=== PATIENT | female | born 1965 | race Caucasian/White ===

== ENCOUNTER 2022-04-09 13:27 | Outpatient (CLI) | payer BC, SELFPAY ==
[2022-04-09 15:09] LABS: TSH With Reflex to FT4* 0.733 uIU/mL (0.270-4.200)
[2022-04-12 14:35] LABS: Testosterone, Low Level 60 ng/dL (9-55)
== END 2022-04-09 13:28 | disposition home or self-care (01) ==
LOC: NFLDREF 13:28
PROVIDERS: PCP Family Medicine; Visit Provider Obstetrics & Gynecology
DX: Z01.419 Encounter for gynecological examination (general) (routine) without abnormal findings (principal); E03.9 Hypothyroidism, unspecified; Z79.899 Other long term (current) drug therapy; Z13.1 Encounter for screening for diabetes mellitus
CPT/HCPCS: 84403; 84443

== ENCOUNTER 2022-06-21 08:33 | Outpatient (CLI) | payer BC, SELFPAY | END 2022-06-21 08:34 | disposition home or self-care (01) | LOC: OP CLINIC 08:34 | PROVIDERS: PCP Family Medicine; Visit Provider Surgery | DX: K62.5 Hemorrhage of anus and rectum (principal); K63.5 Polyp of colon | CPT/HCPCS: 45385; 88305; J1200; J2250; J3010 ==

== ENCOUNTER 2022-10-25 13:01 | Outpatient (CLI) | payer BC, SELFPAY ==
--- NOTE | 2022-10-25 13:20 | CRLHL7_ITS ---
For Patients: As a result of the Century Cures Act, medical imaging exams and procedure reports are released immediately into your electronic medical record. You may view this report before your referring provider. If you have questions, please contact your health care provider. BILATERAL SCREENING MAMMOGRAM WITH COMPUTER-AIDED DETECTION AND TOMOSYNTHESIS TECHNIQUE: CC and MLO views were obtained. These mammographic images have been obtained using full-field digital technique. These mammographic images were interpreted with the benefit of computer-aided detection. Breast Tomosynthesis was used in this interpretation. COMPARISON FILM: 06/26/21, 03/15/20, 01/20/19. FINDINGS: There are scattered areas of fibroglandular density IMPRESSION: There is no radiographic evidence for malignancy. ASSESSMENT: BI-RADS Category 1: Negative RECOMMENDATION: Routine screening mammogram in 1 year. A lay language report of this examination will be provided to the patient. Jasvir Prabhakar M.D. Diagnostic Radiologist [email or web address] TOÑA/Dictated by: Jasvir Prabhakar MD @ 11/01/2022 11:05:00 AM (Electronically Signed)
== END 2022-10-25 13:02 | disposition home or self-care (01) ==
LOC: MAMMO 13:02
PROVIDERS: PCP Family Medicine; Visit Provider Family Medicine
DX: Z12.31 Encounter for screening mammogram for malignant neoplasm of breast (principal)
CPT/HCPCS: 77063; 77067

== ENCOUNTER 2023-05-07 08:32 | Outpatient (CLI) | payer BC, SELFPAY | END 2023-05-07 08:33 | disposition home or self-care (01) | PROVIDERS: PCP Family Medicine; Visit Provider Family Medicine | DX: Z01.818 Encounter for other preprocedural examination (principal); Z00.00 Encounter for general adult medical examination without abnormal findings; E03.9 Hypothyroidism, unspecified; E78.00 Pure hypercholesterolemia, unspecified | CPT/HCPCS: 80053; 80061; 84439; 84443 ==

== ENCOUNTER 2023-06-11 12:45 | Outpatient (CLI) | payer BC, SELFPAY ==
--- NOTE | 2023-06-11 13:00 | XR_ITS ---
Patient: MARLEE MICHEL Facility:?[facility] Patient ID:?[id number] Site Patient ID:?[id number]. Site :?[id number] Study:?DEXA-Bone Density DEXA - SPINE/HIPS-06/11/2023 1:43:54 PM Ordering Physician:KANG Final Report: DXA BONE MINERAL DENSITY STUDY Reason for exam: Screening. Current height (in): 67. Weight (lb): 165. Menopause age: 35. Ethnicity: White. 1. Have you had a previous hip or vertebral fracture? No. 2. Have you had any fractures during your adult life which did not result from significant trauma (e.g., auto accident)? No. 3. Did either of your parents have a hip fracture? No. 4. Do you smoke? No. 5. Have you ever taken Glucocorticoids? No. 6. Do you have rheumatoid arthritis? No. 7. Do you have secondary osteoporosis? No. 8. Do you drink 3 or more alcoholic drinks per day? No. 9. Are you being treated for osteoporosis? No. 10. Have you ever taken any of the following medications: Actonel, Evista, Fosamax, Miacalcin, Reclast, Boniva, Forteo, HRT (i.e. estrogen/hormone therapy), Protelos, Prolia, Vitamin D, Calcium, other ? please specify. ANSWER: Yes, Vitamin D, HRT (i.e. estrogen/hormone therapy) calcium and Levothyroxin. 11. Do you have any of the following medical conditions: Anorexia or bulimia, asthma or emphysema, end stage renal disease, hyperparathyroidism, any seizure disorders, cancer, inflammatory bowel diseases, hysterectomy, other ? please specify. ANSWER: Yes, Cancer and hysterectomy. 12. What was your maximum height (inches)? 67. 13. Do you perform weight bearing exercise regularly? No. 14. Do you regularly consume dairy products? Yes. 15. Do you drink caffeinated beverages? Yes. 16. At what age did your period start? 11. 17. Are you premenopausal? No. 18. How many full term pregnancies have you had? 2. 19. Have you ever missed your period for more than 6 months in a row (not including or menopause)? No. TECHNIQUE: Bone mineral density study was performed using the [employer]. FINDINGS: The results of the study expressed as bone mineral density (BMD) are as follows: Lumbar spine L1 to L3: BMD: 1.226 g/cm2. T-score: 1.9. Z-score: 3.2. Neck Left: BMD: 0.979 g/cm2. T-score: 1.2. Z-score: 2.4. Right: BMD: 0.899 g/cm2. T-score: 0.5. Z-score: 1.7. Total Left: BMD: 1.047 g/cm2. T-score: 0.9. Z-score: 1.8. Right: BMD: 1.051 g/cm2. T-score: 0.9. Z-score: 1.8. IMPRESSION: Normal bone density. *Comparison exams done prior to 08/2019 were performed on different unit, [employer]. Marcos Collins M.D. [email or web address] JPK:[email or web address] D& Transcribed: 7:30 pm SP/Dictated by: Marcos Collins MD @ 06/11/2023 3:52:00 PM Signed by:?Marcos Collins MD @06/12/2023 8:30:44 AM (Electronic Signature)
== END 2023-06-11 12:46 | disposition home or self-care (01) ==
LOC: RAD 12:45
PROVIDERS: PCP Family Medicine; Visit Provider Family Medicine
DX: Z13.820 Encounter for screening for osteoporosis (principal); Z85.43 Personal history of malignant neoplasm of ovary
CPT/HCPCS: 77080

== ENCOUNTER 2023-06-18 09:34 | Outpatient (CLI) | payer BC, SELFPAY | END 2023-06-18 09:35 | disposition home or self-care (01) | LOC: NFLDREF 06-27 12:30 | PROVIDERS: PCP Family Medicine; Referring Provider Family Medicine; Visit Provider Family Medicine | DX: E03.9 Hypothyroidism, unspecified (principal) | CPT/HCPCS: 84443 ==

== ENCOUNTER 2024-07-07 12:40 | Outpatient (CLI) | payer BC, SELFPAY | END 2024-07-07 12:41 | disposition home or self-care (01) | LOC: LKVREF 12:42 | PROVIDERS: PCP Family Medicine; Visit Provider Family Medicine | DX: E03.9 Hypothyroidism, unspecified (principal) | CPT/HCPCS: 84443 ==

== ENCOUNTER 2024-10-12 10:47 | Outpatient (CLI) | payer BC, SELFPAY ==
--- NOTE | 2024-10-27 10:01 | W.PM.SLEEP ---
Sleep Study Details Details Interpreting Provider: Zhang Date of Sleep Study: 10/12/24 Sleep Study Details: STUDY TYPE:? Home unattended ? BMI:? 25.84 ORDERING PROVIDER:? Sivakumar INDICATION:? Concerned about sleep apnea ? SLEEP SUMMARY:? 300 minutes monitored RESPIRATORY SUMMARY:? AHI 9.2 per rule 1A, 6.2 per CMS guideline Low oxygen 77 2.4% of study oxygen less than 90% Snoring 80% PERIODIC LIMB MOVEMENTS OF SLEEP:? Not recorded CARDIAC:? Range 46-76, mean 54.3 beats per minute IMPRESSION:? Mild obstructive sleep apnea RECOMMENDATION: Treatment options include CPAP, dental appliance and/or airway expansion surgery.
== END 2024-10-12 10:48 | disposition home or self-care (01) ==
PROVIDERS: PCP Family Medicine; Visit Provider Family Medicine
DX: G47.33 Obstructive sleep apnea (adult) (pediatric) (principal)
CPT/HCPCS: 95806

== ENCOUNTER 2024-10-21 11:10 | Outpatient (CLI) | payer BC, SELFPAY ==
--- NOTE | 2024-10-21 11:30 | CRLHL7_ITS ---
For Patients: As a result of the Century Cures Act, medical imaging exams and procedure reports are released immediately into your electronic medical record. You may view this report before your referring provider. If you have questions, please contact your health care provider. BILATERAL DIGITAL SCREENING MAMMOGRAM WITH COMPUTER-AIDED DETECTION AND TOMOSYNTHESIS CLINICAL HISTORY: : Routine screening exam. COMPARISON: Mammograms 06/26/2021, 03/15/2020 TECHNIQUE: Digital mammogram in CC and MLO projections including computer-aided detection (CAD). Tomosynthesis was utilized. BREAST COMPOSITION: There are scattered areas of fibroglandular density. FINDINGS: RIGHT Breast: Right breast asymmetry in the superior breast 6 cm from the nipple. LEFT Breast: No suspicious findings. IMPRESSION: RIGHT breast asymmetry/mass. RECOMMENDATIONS: Additional mammographic views of the RIGHT breast including MLO spot-compression view exaggerated cc tomosynthesis view 90 degree lateral view. RIGHT breast ultrasound may also be required. A member of the health care team will contact the patient to schedule the required additional imaging appointment(s). BI-RADS Category 0: Incomplete: Need Additional Imaging Evaluation Dictated by Jessica Yin MD @ 10/21/2024 7:49:37 PM (Electronically Signed)
== END 2024-10-21 11:11 | disposition home or self-care (01) ==
LOC: MAMMO 11:10
PROVIDERS: PCP Family Medicine; Visit Provider Family Medicine
DX: Z12.31 Encounter for screening mammogram for malignant neoplasm of breast (principal); N63.10 Unspecified lump in the right breast, unspecified quadrant
CPT/HCPCS: 77063; 77067

== ENCOUNTER 2024-11-04 09:21 | Outpatient (CLI) | payer BC, SELFPAY ==
--- NOTE | 2024-11-04 09:45 | CRLHL7_ITS ---
For Patients: As a result of the Cures Act, medical imaging exams and procedure reports are released immediately into your electronic medical record. You may view this report before your referring provider. If you have questions, please contact your health care provider. DIGITAL DIAGNOSTIC RIGHT MAMMOGRAM USING TOMOSYNTHESIS RIGHT BREAST ULTRASOUND CLINICAL HISTORY: RIGHT breast mass/asymmetry. COMPARISON: 10/21/2024, 10/25/2022. TECHNIQUE: Digital RIGHT mammogram in three projections. Tomosynthesis was used in this interpretation. Real-time ultrasound imaging of RIGHT breast with imaging documentation. BREAST COMPOSITION: There are scattered areas of fibroglandular density. FINDINGS: Additional mammogram images RIGHT breast submitted. Decreased conspicuity of previously noted asymmetric density. No architectural distortion. No suspicious calcifications. No adenopathy. Targeted RIGHT breast ultrasound performed. At 11 o`clock 5 cm from the nipple. Normal fibroglandular tissue. No fibrocystic change or mass. IMPRESSION: No evidence of malignancy. No suspicious findings. RECOMMENDATIONS: Routine screening mammography. A lay language report of this examination will be provided to the patient. BI-RADS Category 2: Benign Dictated by Jasvir Prabhakar MD @ 11/04/2024 10:36:57 AM jj/Dictated by: Jasvir Prabhakar MD @ 11/04/2024 10:36:00 AM (Electronically Signed)
--- NOTE | 2024-11-04 10:15 | CRLHL7_ITS ---
For Patients: As a result of the Cures Act, medical imaging exams and procedure reports are released immediately into your electronic medical record. You may view this report before your referring provider. If you have questions, please contact your health care provider. SEE DIGITAL DIAGNOSTIC RIGHT MAMMOGRAM PERFORMED SAME DAY CRL:[email or web address] farrar/Dictated by: Jasvir Prabhakar MD @ 11/04/2024 10:37:00 AM (Electronically Signed)
== END 2024-11-04 09:22 | disposition home or self-care (01) ==
LOC: MAMMO 09:22
PROVIDERS: PCP Family Medicine; Visit Provider Family Medicine
DX: N63.10 Unspecified lump in the right breast, unspecified quadrant (principal); R92.8 Other abnormal and inconclusive findings on diagnostic imaging of breast
CPT/HCPCS: 76642; 77065; G0279